=== PATIENT | female | born 1990 | race Caucasian/White ===

== ENCOUNTER → 2019-12-09 13:19 | Outpatient (BNVA) | payer OTHER, SELFPAY | PROVIDERS: PCP Internal Medicine; Visit Provider Advanced Practice Midwife | DX: Z30.09 Encounter for other general counseling and advice on contraception (principal) | CPT/HCPCS: 11982; 99212 ==

== ENCOUNTER 2020-01-23 11:09 | Outpatient (REF) | payer OTHER, SELFPAY ==
[2020-01-23 14:43] LABS: UPreg QC Valid YES; Urine Pregnancy POSITIVE (NEGATIVE)
[2020-01-23 15:11] LABS: HCG Quantitative 18038 mIU/mL
== END 2020-01-23 11:10 | disposition home or self-care (01) ==
LOC: HO.LAB 11:09
PROVIDERS: PCP Internal Medicine; Visit Provider Advanced Practice Midwife
DX: N92.6 Irregular menstruation, unspecified (principal); Z32.01 Encounter for pregnancy test, result positive; Z3A.00 Weeks of gestation of pregnancy not specified
CPT/HCPCS: 81025; 84702; 99212

== ENCOUNTER 2020-01-26 09:46 | Outpatient (REF) | payer OTHER, SELFPAY ==
[2020-01-26 10:33] LABS: UPreg QC Valid YES; Urine Pregnancy POSITIVE (NEGATIVE)
== END 2020-01-26 09:47 | disposition home or self-care (01) ==
LOC: HO.LAB 09:46
PROVIDERS: PCP Internal Medicine; Visit Provider Advanced Practice Midwife
DX: N92.6 Irregular menstruation, unspecified (principal); Z32.01 Encounter for pregnancy test, result positive
CPT/HCPCS: 81025; 84702

== ENCOUNTER 2020-01-27 14:14 | Outpatient (REF) | payer OTHER, SELFPAY ==
--- NOTE | 2020-01-27 14:19 | US_ITS ---
EXAMINATION: FIRST TRIMESTER OB ULTRASOUND CLINICAL INFORMATION: Hemorrhage and early COMPARISON: None TECHNIQUE: Transabdominal first trimester OB ultrasound FINDINGS: The uterus measures 12.1 x 5 x 2.4 cm in dimension. There is an intrauterine gestational sac. [place]-rump length measures 0.45 cm suggesting gestational age of 6 weeks 2 days with estimated date of delivery of 09/19/2020. heart rate is 127 bpm. The ovaries are normal-appearing. There is no fluid in the pelvis. US/US OB transvaginal IMPRESSION: Single viable intrauterine . From today's measurements, gestational age is estimated at 6 weeks 2 days with estimated date of delivery of 09/19/2020.
--- NOTE | 2020-01-27 14:19 | US_ITS ---
EXAMINATION: FIRST TRIMESTER OB ULTRASOUND CLINICAL INFORMATION: Hemorrhage and early COMPARISON: None TECHNIQUE: Transabdominal first trimester OB ultrasound FINDINGS: The uterus measures 12.1 x 5 x 2.4 cm in dimension. There is an intrauterine gestational sac. [place]-rump length measures 0.45 cm suggesting gestational age of 6 weeks 2 days with estimated date of delivery of 09/19/2020. heart rate is 127 bpm. The ovaries are normal-appearing. There is no fluid in the pelvis. US/US OB <= 14 weeks fetus IMPRESSION: Single viable intrauterine . From today's measurements, gestational age is estimated at 6 weeks 2 days with estimated date of delivery of 09/19/2020.
== END 2020-01-27 14:15 | disposition home or self-care (01) ==
LOC: HO.US 14:14
PROVIDERS: PCP Internal Medicine; Visit Provider Advanced Practice Midwife
DX: O20.9 Hemorrhage in early pregnancy, unspecified (principal)
CPT/HCPCS: 76801; 76817

== ENCOUNTER → 2020-01-28 11:14 | Outpatient (BNVA) | payer OTHER, SELFPAY | PROVIDERS: PCP Internal Medicine; Visit Provider Advanced Practice Midwife | DX: Z76.89 Persons encountering health services in other specified circumstances (principal) ==

== ENCOUNTER → 2020-02-16 14:07 | Outpatient (BNVA) | payer OTHER, SELFPAY | PROVIDERS: PCP Internal Medicine; Visit Provider Advanced Practice Midwife | DX: Z76.89 Persons encountering health services in other specified circumstances (principal) | CPT/HCPCS: 99212 ==

== ENCOUNTER 2020-03-03 15:13 | Outpatient (REF) | payer OTHER, SELFPAY ==
[2020-03-03 16:05] LABS: MANUAL DIFF FLAG NO
[2020-03-03 16:11] LABS: Basophils Percent Auto 0.3 % (0-2); Eosinophils Absolute Auto 0.1 X10*3/uL (0.0-0.4); Eosinophils Percent Auto 0.8 % (0-4); Hematocrit 38.1 % (37-47); Hemoglobin 12.9 g/dl (12.0-16.0); Imm Gran Abs Auto 0.04 X10*3/uL (0.00-0.03); Imm Gran Pct Auto 0.4 % (0.0-0.4); Lymphocytes Absolute Auto 2.1 X10*3/uL (1.2-4.9); Mean Corpuscular HGB Conc 33.9 g/dl (31.0-35.0); Mean Corpuscular Hemoglobin 30.1 pg (27.0-33.0); Mean Corpuscular Volume 88.8 fL (80-98); Mean Platelet Volume 10.1 fL (9.4-12.3); Monocytes Absolute Auto 0.8 X10*3/uL (0.1-1.2); Monocytes Percent Auto 8.5 % (2-11); Neutrophils Absolute Auto 6.8 X10*3/uL (2.0-8.3); Platelet Count 287 X10*3/uL (160-400); Red Blood Count 4.29 X10*6/uL (4.20-5.50); Red Cell Distribution Width 13.4 % (11.0-16.0); White Blood Count 9.8 X10*3/uL (4.8-10.8)
[2020-03-03 16:54] LABS: Amphetamine Screen Urine Not Detected (Not Detect); Barbiturates, Urine Not Detected (Not Detect); Benzodiazepines Screen Urine Not Detected (Not Detect); Cannabinoid Screen Urine Not Detected (Not Detect); Cocaine Screen Urine Not Detected (Not Detect); Opiate Screen Urine Not Detected (Not Detect); Phencyclidine Screen Urine Not Detected (Not Detect)
[2020-03-03 17:08] LABS: Syphilis Screen Nonreactive (Nonreactive)
[2020-03-04 04:42] LABS: HIV AB/AG Nonreactive (Nonreactive); HIV Num 1 0.07 S/CO (0.00-0.99); Hepatitis B Surface Antigen Negative (Negative); ~HepC Num1 0.14 S/CO (0.00-0.79); ~Hepatitis C Antibody Nonreactive (Nonreactive)
[2020-03-04 05:22] LABS: Rubella IgG Antibody 2.16 Index
== END 2020-03-03 15:14 | disposition home or self-care (01) ==
LOC: HO.LAB 15:13
PROVIDERS: Visit Provider Advanced Practice Midwife
DX: Z34.90 Encounter for supervision of normal pregnancy, unspecified, unspecified trimester (principal)
CPT/HCPCS: 80307; 85025; 86762; 86780; 86787; 86803; 86850; 86900; 86901; 87086; 87340; 87389

== ENCOUNTER 2020-03-05 11:41 | Outpatient (REF) | payer OTHER, SELFPAY ==
--- NOTE | 2020-03-05 11:46 | US_ITS ---
EXAMINATION: OBSTETRICAL ULTRASOUND, FIRST TRIMESTER HISTORY: 29-year-old at the 12.1 weeks of gestation NT screening COMPARISON: 01/27/2020 TECHNIQUE: Real time transabdominal imaging with color and M-mode Doppler. FINDINGS: A single, live IUP CRL of 55.0 mm c/w 12.1wks is noted. Heart Rate: 169 beats per minute. Normal yolk sac seen. NT was 2.0.mm. NB Present The embryo appears sonographically wnl for this GA. Both maternal ovaries are seen and appear normal. GESTATIONAL AGE: 1. Established GA: NA wks 2. GA from [facility]: N/A wks ESTIMATED DATE OF DELIVERY: 1. Established MALENA: N/A 2. MALENA from [facility]: 09/16/2020 US/US OB 1T nuc measure IMPRESSION: 1. A single live IUP 2. Size equals dates 3. NT of 2.0 mm MFM Consultation: I reviewed the ultrasound findings along with significance of NT measurement. The NT of less than 3mm is generally reassuring. However, the sensitivity for T21 detection is only 60%. I reviewed the availability of serum aneuploidy screening which includes cell-free DNA and placental protein based tests. I discussed the sensitivity, false-positive rate, and other limitations associated with each test. I also reviewed the availability of invasive diagnostic tests that are associated small but definite risk of miscarriage. We also reviewed the differences between screening tests and diagnostic tests. After our discussion, she opted for the First trimester screening that is based on cell-free DNA or non-invasive testing (NIPT). The result will be faxed to your office in approximately 7 days. A follow up at 18 weeks for survey has been scheduled. Thank you very much for this referral. Majority of this visit was spent reviewing her care and counselling her in face to face time: Time spent 20 min.
== END 2020-03-05 11:42 | disposition home or self-care (01) ==
LOC: HO.US 11:41
PROVIDERS: Visit Provider Advanced Practice Midwife
DX: Z36.82 Encounter for antenatal screening for nuchal translucency (principal); Z34.90 Encounter for supervision of normal pregnancy, unspecified, unspecified trimester
CPT/HCPCS: 76813

== ENCOUNTER 2020-03-15 15:03 | Outpatient (REF) | payer OTHER, SELFPAY ==
[2020-03-16 08:45] LABS: BV Int Neg Control Negative (Negative); BV Int Pos Control Positive (Positive)
[2020-03-17 06:47] LABS: C. trachomatis RNA TMA NOT DETECTED (NOT DETECTED); N. gonorrhoeae RNA TMA NOT DETECTED (NOT DETECTED)
== END 2020-03-15 15:04 | disposition home or self-care (01) ==
LOC: HO.LAB 15:03
PROVIDERS: Visit Provider Advanced Practice Midwife
DX: O35.9XX0 Maternal care for (suspected) fetal abnormality and damage, unspecified, not applicable or unspecified (principal); O26.899 Other specified pregnancy related conditions, unspecified trimester; O21.9 Vomiting of pregnancy, unspecified; R42 Dizziness and giddiness; R25.2 Cramp and spasm; Z12.4 Encounter for screening for malignant neoplasm of cervix
CPT/HCPCS: 36415; 81003; 87480; 87491; 87510; 87591; 87660; 99212

== ENCOUNTER 2020-03-19 19:43 | Emergency (ER) | payer OTHER, SELFPAY ==
--- NOTE | ~2020-03-19 | US_ITS ---
EXAMINATION: ULTRASOUND FIRST TRIMESTER CLINICAL INFORMATION: Vaginal bleeding.. COMPARISON: 03/05/2020. TECHNIQUE: Transabdominal imaging of the pelvis was performed. FINDINGS: A gravid uterus is identified. There is a heterogeneous focus measuring approximately 6.8 x 4.6 x 4.2 cm adjacent to the placenta suspicious for a hemorrhage. A single living intrauterine gestation is identified. A normal heart rate of 161 beats per minute is identified. Neither ovary is documented. There is no pelvic free fluid. US/US OB limited IMPRESSION: Approximately 6.8 x 4.6 x 4.2 cm heterogeneous focus adjacent to the placenta patient registration representative of a subchorionic hematoma. Normal single living intrauterine gestation.
[2020-03-19 19:48] VITALS: BP 128/83; PULSE 98; RESP 16; TEMP 36.7; O2SAT 97; BMI 36.5
[2020-03-19 20:04] LABS: MANUAL DIFF FLAG NO
[2020-03-19 20:05] LABS: Basophils Percent Auto 0.2 % (0-2); Eosinophils Percent Auto 0.4 % (0-4); Hematocrit 37.9 % (37-47); Imm Gran Abs Auto 0.03 X10*3/uL (0.00-0.03); Imm Gran Pct Auto 0.3 % (0.0-0.4); Lymphocytes Absolute Auto 2.2 X10*3/uL (1.2-4.9); Lymphocytes Percent Auto 22.6 % (20-40); Mean Corpuscular HGB Conc 34.3 g/dl (31.0-35.0); Mean Corpuscular Hemoglobin 29.5 pg (27.0-33.0); Mean Corpuscular Volume 86.1 fL (80-98); Monocytes Absolute Auto 0.7 X10*3/uL (0.1-1.2); Monocytes Percent Auto 7.2 % (2-11); Neutrophils Absolute Auto 6.7 X10*3/uL (2.0-8.3); Neutrophils Percent Auto 69.3 % (45-73); Platelet Count 281 X10*3/uL (160-400); Red Cell Distribution Width 12.8 % (11.0-16.0); White Blood Count 9.6 X10*3/uL (4.8-10.8)
[2020-03-19 20:24] LABS: Glucose Urine UA NEG (NEG); Leukocyte Esterase Urine NEG (NEG); Nitrite Urine NEG (NEG); Specific Gravity - Urine >= 1.030 (1.005-1.025); Urine Blood 2+ (NEG); Urine Ketones NEG (NEG); Urine Protein NEG (NEG-TRACE)
[2020-03-19 20:26] LABS: Appearance Urine CLEAR; Color Urine YELLOW
[2020-03-19 20:27] LABS: Alanine Aminotransferase 90 U/L (0-31); Albumin Level 3.9 g/dL (3.5-5.0); Alkaline Phosphatase 58 U/L (39-117); Anion Gap 14 (12-20); Aspartate Amino Transferase 61 U/L (5-31); Bilirubin Total 0.2 mg/dL (0.0-1.0); Blood Urea Nitrogen 9 mg/dL (9-16); Calcium 9.3 mg/dL (8.4-10.2); Carbon Dioxide 21 mmol/L (22-29); Chloride 106 mmol/L (96-108); Creatinine Clr Calc Pharmacy 139.9; Estimated Glomerular Filt Rate > 60; Glucose Random 88 mg/dL (60-115); Potassium 3.6 mmol/L (3.3-5.1); Sodium 137 mmol/L (135-145); Total Protein 7.1 g/dL (6.5-8.0)
[2020-03-19 20:34] LABS: Bacteria Urine TRACE /LPF; Mucus Urine 3+ /LPF; Squamous Epithelial Cell Urine 2+ /LPF; WBC Urine 0-2 /HPF (0-4)
[2020-03-19 20:55] LABS: HCG Quantitative 58327 mIU/mL
--- NOTE | 2020-03-19 23:16 | PC.NURSE ---
PATIENT HAS GONE THROUGH BOTH PADS PREVIOUSLY PROVIDED BY THIS RN.
[2020-03-20] VITALS: BP 124/70; PULSE 93; RESP 18; O2SAT 97
--- NOTE | 2020-03-20 01:01 | ED_ITS ---
HPI - General Chief complaint: Vaginal Bleeding Stated complaint: vaginal bleeding Time Seen by Provider: 03/19/20 23:54 Source: patient Mode of arrival: ambulatory History of Present Illness HPI Narrative: This is a 29-year-old female, this states that she is approximately 13 weeks and a few days with an uncomplicated and states that it she got into her car and felt like ?something was coming down? and when she checked noted that she was experiencing some vaginal bleeding. She did notify her career services assistant who stated that she could either choose to monitor closely at home or proceed to the emergency department for further evaluation. Patient is also been experiencing increased lower pelvic pain and cramping but denies any passing of clots. On review of her prior medical records she is noted to be B positive Related Data Previous Rx's Medication Instructions Recorded prenat.vits,ana,fpl-gbii-jozpe 1 tab PO BEDTIME #30 tab 11/27/19 Allergies Allergy/AdvReac Type Severity Reaction Status Date / Time No Known Allergies Allergy Mild NOT Verified 03/19/20 19:48 APPLICABLE Review of Systems Review of Systems: Pertinent positives and negatives as stated in HPI 10 point review of systems is otherwise negative. PMFSH Past Medical History Source: nursing notes reviewed Medical History Fatty liver History of back pain History of major depression Knee pain Family History Family History Father Tongue cancer Mother Fatty liver Maternal Aunt Ovarian cancer Maternal Grandmother Ovarian cancer Uterine cancer Paternal Aunt No problems noted. Paternal Grandmother Ovarian cancer Social History Social History Alcohol intake: never Smoking Status: Never smoker Smoked in Last 30 Days: No Use of substances other than those prescribed or required for medical reasons: No Advance Directives: No Sexual orientation: Straight/Heterosexual Gender identity: female Physical Exam Vital Signs: Vital Signs: Last Vital Signs Temp 98.4 F 03/20/20 02:00 Pulse 85 03/20/20 02:00 Resp 16 03/20/20 02:00 BP 107/63 03/20/20 02:00 Pulse Ox 99 03/20/20 02:00 Body Mass Index 36.5 VITAL SIGNS: Reviewed. GENERAL: Well developed, well nourished, in no acute distress. HEAD: Normocephalic/atraumatic, NOSE: Nares patent bilateral OROPHARYNX: no oral lesions noted, posterior pharynx clear NECK: Supple, no adenopathy LUNGS: Normal breath sounds. SpO2<97> CARDIOVASCULAR: Regular rate and rhythm without noted murmurs, no JVD or lower extremity edema. ABDOMEN: Soft, tenderness suprapubic without rebound, non-distended with bowel sounds. NEUROLOGIC: Alert and oriented x 4. Course Course Course Narrative: This is a 29-year-old female with history and clinical pre sentation consistent with likely miscarriage, but will evaluate further with ultrasound. Review of all investigations only significant for findings of: Approximately 6.8 x 4.6 x 4.2 cm heterogeneous focus adjacent to the placenta customer retention representative of a subchorionic hematoma. No evidence of anemia and on re-evaluation patient states that the bleeding has somewhat improved. I discussed this case with on-call OB who recommends pelvic rest and treating the cramping with Tylenol and a heating pad and patient will be called for follow-up appointment this next week. This information was communicated to the patient and she was discharged in stable condition. MDM - OB/Uterine Contractions Lab Data Result diagrams: 03/19/20 19:58 03/19/20 19:58 Labs: Lab Results 03/19/20 03/19/20 03/19/20 Range/Units 19:58 19:58 19:58 WBC 9.6 (4.8-10.8) X10*3/uL RBC 4.40 (4.20-5.50) X10*6/uL Hgb 13.0 (12.0-16.0) g/dl Hct 37.9 (37-47) % MCV 86.1 (80-98) fL MCH 29.5 (27.0-33.0) pg MCHC 34.3 (31.0-35.0) g/dl RDW 12.8 (11.0-16.0) % Plt Count 281 (160-400) X10*3/uL MPV 10.0 (9.4-12.3) fL Immature Gran % (Auto) 0.3 (0.0-0.4) % Neut % (Auto) 69.3 (45-73) % Lymph % (Auto) 22.6 (20-40) % [place] % (Auto) 7.2 (2-11) % Eos % (Auto) 0.4 (0-4) % Baso % (Auto) 0.2 (0-2) % Lymph # (Auto) 2.2 (1.2-4.9) X10*3/uL [place] # (Auto) 0.7 (0.1-1.2) X10*3/uL Eos # (Auto) 0.0 (0.0-0.4) X10*3/uL Baso # (Auto) 0.0 (0.0-0.2) X10*3/uL Abs Immat Gran (auto) 0.03 (0.00-0.03) X10*3/uL Absolute Neuts (auto) 6.7 (2.0-8.3) X10*3/uL Absolute Nucleated RBC 0.000 (0.0-0.012) X10*3/uL Nucleated RBC % (auto) 0.0 (0.0-0.2) /100WBC Hold Blue Top SEE NOTE Sodium 137 (135-145) mmol/L Potassium 3.6 (3.3-5.1) mmol/L Chloride 106 (96-108) mmol/L Carbon Dioxide 21 L (22-29) mmol/L Anion Gap 14 (12-20) BUN 9 (9-16) mg/dL Creatinine 0.65 (0.5-1.4) mg/dL Estim Creat Clear Calc 139.9 Estimated GFR > 60 Random Glucose 88 (60-115) mg/dL Calcium 9.3 (8.4-10.2) mg/dL Total Bilirubin 0.2 (0.0-1.0) mg/dL AST 61 H (5-31) U/L ALT 90 H (0-31) U/L Alkaline Phosphatase 58 (39-117) U/L Total Protein 7.1 (6.5-8.0) g/dL Albumin 3.9 (3.5-5.0) g/dL Beta HCG, Quant 29388 mIU/mL Urine Color Urine Appearance Urine pH (5.0-8.0) Ur Specific [place] (1.005-1.025) Urine Protein (NEG-TRACE) MG/DL Urine Glucose (UA) (NEG) MG/DL Urine Ketones (NEG) MG/DL Urine Blood (NEG) Urine Nitrite (NEG) Ur Leukocyte Esterase (NEG) Urine RBC (0) /HPF Urine WBC (0-4) /HPF Ur Squamous Epith Cells /LPF Urine Bacteria /LPF Urine Mucus /LPF 03/19/20 Range/Units 20:17 WBC (4.8-10.8) X10*3/uL RBC (4.20-5.50) X10*6/uL Hgb (12.0-16.0) g/dl Hct (37-47) % MCV (80-98) fL MCH (27.0-33.0) pg MCHC (31.0-35.0) g/dl RDW (11.0-16.0) % Plt Count (160-400) X10*3/uL MPV (9.4-12.3) fL Immature Gran % (Auto) (0.0-0.4) % Neut % (Auto) (45-73) % Lymph % (Auto) (20-40) % [place] % (Auto) (2-11) % Eos % (Auto) (0-4) % Baso % (Auto) (0-2) % Lymph # (Auto) (1.2-4.9) X10*3/uL [place] # (Auto) (0.1-1.2) X10*3/uL Eos # (Auto) (0.0-0.4) X10*3/uL Baso # (Auto) (0.0-0.2) X10*3/uL Abs Immat Gran (auto) (0.00-0.03) X10*3/uL Absolute Neuts (auto) (2.0-8.3) X10*3/uL Absolute Nucleated RBC (0.0-0.012) X10*3/uL Nucleated RBC % (auto) (0.0-0.2) /100WBC Hold Blue Top Sodium (135-145) mmol/L Potassium (3.3-5.1) mmol/L Chloride (96-108) mmol/L Carbon Dioxide (22-29) mmol/L Anion Gap (12-20) BUN (9-16) mg/dL Creatinine (0.5-1.4) mg/dL Estim Creat Clear Calc Estimated GFR Random Glucose (60-115) mg/dL Calcium (8.4-10.2) mg/dL Total Bilirubin (0.0-1.0) mg/dL AST (5-31) U/L ALT (0-31) U/L Alkaline Phosphatase (39-117) U/L Total Protein (6.5-8.0) g/dL Albumin (3.5-5.0) g/dL Beta HCG, Quant mIU/mL Urine Color YELLOW Urine Appearance CLEAR Urine pH 6.0 (5.0-8.0) Ur Specific [place] >= 1.030 H (1.005-1.025) Urine Protein NEG (NEG-TRACE) MG/DL Urine Glucose (UA) NEG (NEG) MG/DL Urine Ketones NEG (NEG) MG/DL Urine Blood 2+ H (NEG) Urine Nitrite NEG (NEG) Ur Leukocyte Esterase NEG (NEG) Urine RBC 5-9 H (0) /HPF Urine WBC 0-2 (0-4) /HPF Ur Squamous Epith Cells 2+ /LPF Urine Bacteria TRACE /LPF Urine Mucus 3+ /LPF Discharge Plan Discharge Clinical Impression: Subchorionic hemorrhage in second trimester Qualifiers: Fetus number: single or unspecified fetus Qualified Code(s): O41.8X20 - Other specified disorders of amniotic fluid and membranes, second trimester, not applicable or unspecified Patient Disposition: Home, Self-Care Instructions: Subchorionic Hemorrhage (ED) Additional Instructions: 1. Tylenol 1000 mg, orally, every 6 hours as needed for cramping pain. Do not exceed 4000 mg within 24 hours. In addition, you may use a heating pad for additional symptom relief. 2. You are to maintain pelvic rest until you are re-evaluated by OB provider. 3. You will be called this next week to set up a follow-up appointment. Do not hesitate to return to the emergency department should you experience any acute worsening of vaginal bleeding, dizziness, or shortness of breath. Prescriptions: No Action prenat.vits,ana,ewl-puca-nwnof Tablet 1 tab PO BEDTIME Qty: 30 RF: 11 Referrals: Simone Ghosh MD [Primary Care Provider] - 2 days Vivienne Esquivel MD [Physician] - 2 days (Re-evaluation after diagnosis of subchorionic hemorrhage.)
[2020-03-20] MEDS: Acetaminophen 325 MG TABLET 975 MG PO (01:47)
[2020-03-20 02:00] VITALS: BP 107/63; PULSE 85; RESP 16; TEMP 36.9; O2SAT 99
--- NOTE | 2020-03-20 03:10 | PC.NURSE ---
Report taken from joanne Cardenas Rn resuming care. MD at bedside to discuss U/S results and plan of care.
[2020-03-20 03:53] VITALS: BP 106/80; PULSE 84; RESP 16
== END 2020-03-20 03:55 | disposition home or self-care (01) ==
PROVIDERS: Emergency Provider Student in an Organized Health Care Education/Training Program; PCP Internal Medicine
DX: O41.8X20 Other specified disorders of amniotic fluid and membranes, second trimester, not applicable or unspecified (principal); O20.8 Other hemorrhage in early pregnancy; Z3A.13 13 weeks gestation of pregnancy
CPT/HCPCS: 36415; 76815; 80053; 81001; 84702; 85025; 99284

== ENCOUNTER → 2020-03-26 14:40 | Outpatient (BNVA) | payer OTHER, SELFPAY | PROVIDERS: PCP Internal Medicine; Visit Provider Advanced Practice Midwife | DX: O46.91 Antepartum hemorrhage, unspecified, first trimester (principal) | CPT/HCPCS: 99212 ==